=== PATIENT | male | born 1985 | race Caucasian/White ===

== ENCOUNTER 2019-10-16 13:16 | Emergency (ER) | payer OTHER ==
[~2019-10-16] VITALS: Ht 182.9 cm; Wt 113.4 kg
[~2019-10-16 13:16] MED LIST: HYDROCODON-ACE1 EAC7 PO; NOHOMEMEDICATIONS
[2019-10-16] MEDS ORDERED: NORCO 5-325 TA1 EAC1 PO (15:16)
[2019-10-16 15:48] VITALS: BP 154/92
== END 2019-10-16 15:49 | disposition home or self-care (01) ==
LOC: M.ERS 13:16
DX: S92.321A Displaced fracture of second metatarsal bone, right foot, initial encounter for closed fracture (principal); S92.331A Displaced fracture of third metatarsal bone, right foot, initial encounter for closed fracture; X58.XXXA Exposure to other specified factors, initial encounter; Y93.39 Activity, other involving climbing, rappelling and jumping off; Y92.89 Other specified places as the place of occurrence of the external cause; Y99.8 Other external cause status